=== PATIENT | male | born 1935 | race Caucasian/White ===

== ENCOUNTER 2017-03-24 00:16 | Day surgery (SDC) | payer MEDICARE, OTHER ==
[~2017-03-24] VITALS: Ht 177.8 cm; Wt 68.2 kg
[2017-03-24] VITALS (13 sets, daily range): BP systolic 123–152; BP diastolic 75–96; PULSE 78–102; RESP 11–25; O2SAT 97–99
[~2017-03-24 00:16] MED LIST: ASPI-973 PO; ATOR40TA69 PO; GLIM4TAB PO; INSU100V7 SUBQ; METF1000 PO; METO25TA99 PO
[2017-03-24 08:02] LABS: BASOPHILS % (AUTO) 0.7 % (0-3); EOSINOPHILS % (AUTO) 0.7 % (0-5); MONOCYTES % (AUTO) 8.3 % (4-12); Mean Corpuscular Hemoglobin 30.9 pg (27.0-35.0); Mean Corpuscular Volume 94.5 fL (81-100); NEUTROPHILS % (AUTO) 77.2 % (40-74); Platelet Count 209 bil/L (150-400)
--- NOTE | 2017-03-24 08:20 | NUR ---
Arrival: Pt has 20g IV in R AC, unable to place L IV. IV therapy at bedside to access pt's port a cath. Labs drawn and sent.
[2017-03-24] MEDS ORDERED: Heparin 10,000 Unit/1,000 mL NS Premix IV ONE (09:20)
[2017-03-24] MEDS ORDERED: fentaNYL-PF 50 mCg/mL 2 mL Inj ONE (09:21)
[2017-03-24] MEDS ORDERED: Heparin 1,000 Unit/mL 10 mL Inj ONE (09:21)
--- NOTE | 2017-03-24 09:21 | NUR ---
Hilary VILLAFANA at 0915 for planned angiogram, in waiting room Addendum: 03/24/17 at 1110 by ANDREY ZARCO RN returned at 1100, updated by
--- NOTE | 2017-03-24 13:55 | NUR ---
Discharge: VSS, see post heart cath flowsheet for checks. IV d/c'd, portacath deaccessed by IV therapy. Ambulated to bathroom with SBA, activity tolerated well, groin site stable post activity. D/c'd home with providing transportation, pt has angiogram for L leg scheduled for Thursday 03/29. Pt/spouse given cardiac cath d/c instructions, extensive discussion of site care, understanding verbalized.
--- NOTE | 2017-03-24 14:57 | DRSVH ---
PROCEDURE: ANGIO, LE, UNILATERAL INDICATIONS: Bilateral nonhealing great toe ulcers. COMPARISON: [facility], CT, CT ANGIO AORTA RUNOFF, 03/20/2017, 12:19. Technique: 1. Conscious sedation for 60 minutes. 2. Antegrade access of the right common femoral artery. 3. Right lower extremity runoff. 4. Angioplasty of the superficial femoral artery, the popliteal artery, and the tibioperoneal trunk. 5. Completion arteriogram. The indications, alternatives, benefits, risks, and complications of the procedure were explained to the patient and his . Informed written consent was obtained and placed in the chart. The patient was brought to the angiography suite, and conscious sedation was administered intravenously by skill ed nursing staff, while continuous cardiorespiratory monitoring was performed. Maximum sterile barrier technique was employed per standard protocol, including hand hygiene, cap, ma sk, sterile gown and gloves, and 2% chlorhexidine. One percent lidocaine was used to anesthetize the skin over the area of interest. Using a micropuncture kit, the right common femoral artery was access ed in antegrade fashion. The micropuncture sheath was exchanged for a 5 Mauritian sheath. Right lower ex tremity runoff was performed. An 018 wire was advanced with the tip in the peroneal artery. Balloon a ngioplasty was performed for a multifocal high-grade stenosis of the tibioperoneal trunk with a 3 mm x 40 mm high-pressure balloon. Completion arteriogram was performed. Next, balloon angioplasty was pe rformed for a focal high-grade stenosis within the infrageniculate popliteal artery with a 3 mm x 40 mm high-pressure balloon. Next, multifocal high-grade stenoses underwent balloon angioplasty in the d istal superficial femoral artery and suprageniculate popliteal artery with a 5 mm x 40 mm high-pressu re balloon. Completion arteriogram was performed. The balloon was removed, the wire was removed, and a closure device was deployed at the access site i n the common femoral artery. FINDINGS: Initial arteriogram demonstrates a widely patent common femoral artery and profunda artery . Mild mural irregularity is present throughout the proximal and midportion of the superficial femora l artery multifocal high grade stenoses are present within the inferior superficial femoral artery at the level of the abductor hiatus. A focal moderate to high-grade stenosis is present within the supr ageniculate portion of the popliteal artery. A high-grade stenosis is present within the infragenicul ate origin of the popliteal artery. A multifocal high-grade stenosis is present within the tibioperon eal trunk. After balloon angioplasty of the stenoses described above, there is little to no residual stenosis at the level of the tibioperoneal trunk, popliteal artery, or distal superficial femoral art sharita. IMPRESSION: 1. 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 Dictated by: Judi Otero M.D. on 03/24/2017 at 14:50 Approved by: Judi Otero M.D. on 03/24/2017 at 14:55
== END 2017-03-24 23:59 | disposition home or self-care (01) ==
LOC: SOUO 00:16
PROVIDERS: ATTEND Radiology Vascular & Interventional Radiology
DX: I70.235 Atherosclerosis of native arteries of right leg with ulceration of other part of foot (principal); L97.519 Non-pressure chronic ulcer of other part of right foot with unspecified severity
CPT/HCPCS: 37224; 37228; 75710; 80048; 85025; 85610; 99152; 99153; C1725; C1760; C1769; C1894; J1644; J2250; J3010; Q9967

== ENCOUNTER 2017-04-14 00:09 | Day surgery (SDC) | payer MEDICARE, OTHER ==
--- NOTE | 2017-04-14 16:24 | DRSVH ---
PROCEDURE: RADIOLOGIST CONSULT FOLLOW UP COMPARISON: None. ID & CHIEF COMPLAINT: Mr. Santana presents to discuss followup after his bilateral lower extremity a ngioplasty. HISTORY OF PRESENT ILLNESS: Mr. Santana underwent initial right lower extremity angioplasty on and subsequently underwent left lower extremity angioplasty on 03/29/17. He states that he is done well after both procedures. However, he did have some blood seen on the dressing in his left groin af ter the 03/29 angioplasty and presented to the emergency room for evaluation. There was no evidence fo r active extravasation at the time of this visit and he was discharged home. He says he has had inter mittent sharp pain in the left groin but otherwise no complaints after the procedure. MEDICATIONS: Medication list on file (in PACS documents) and reviewed. REVIEW OF SYSTEMS: The patient endorses intermittent left groin pain. He denies any change in his res piratory status, chest pain, respiratory problems, change in bowel habits, change in urination, or ch carlos manuel in mentation. FOCUSED PHYSICAL EXAM: Physical exam: Blood pressure: 109/79, heart rate: 107, respiratory rate 18, saturation: 98% on room air, temperatur e: 36.5C Examination of the left groin demonstrates a near completely resolved small (quarter-sized) hematoma. IMPRESSION: In summary, Mr. Santana has done well after bilateral lower extremity angioplasty. He will followup with the [facility] for continued evaluation of his bilateral foot ulcers. Thank you for this interesting consult. Dictated by: Judi Otero M.D. on 04/14/2017 at 16:18 Approved by: Judi Otero M.D. on 04/14/2017 at 16:22
== END 2017-04-14 23:59 | disposition home or self-care (01) ==
LOC: SOUO 00:09
PROVIDERS: ATTEND Radiology Vascular & Interventional Radiology
DX: Z09 Encounter for follow-up examination after completed treatment for conditions other than malignant neoplasm (principal); Z98.62 Peripheral vascular angioplasty status